=== PATIENT | female | born 1960 | race Caucasian/White ===

== ENCOUNTER 2017-08-28 22:37 | Observation (INO) | payer MEDICAID, OTHER ==
[2017-08-28] MEDS ORDERED: NS 0.9% 1000 ML* 1,000 ML IV ONE (22:51)
[2017-08-28] MEDS ORDERED: Midazolam* 1 MG/ML 5 ML VIAL (5 MG) SLOW PUSH ONE (22:51)
[2017-08-28] MEDS ORDERED: fentaNYL* 50 MCG/ML 2 ML VIAL (100 MCG VIAL) IV SLOW PU ONE (22:51)
[2017-08-29 01:11] LABS: ABS Basophils 0 10^3/ul (0-0.2); ABS Eosinophils 0 10^3/ul (0-0.6); ABS Lymphocytes 0.8 10^3/ul (1.0-4.8); ABS Monocytes 0.5 10^3/ul (0-0.8); ABS Neutrophils 11.2 10^3/ul (1.5-7.7); ABS Nucleated RBC 0 10^3/ul; Eosinophil % 0.1 % (0-6); Hematocrit 37 % (35-47); Hemoglobin 12.7 g/dl (12.0-16.0); Lymphocyte % 6.6 % (25-47); Mean Corpuscular HGB Conc 34 g/dl (31-36); Mean Corpuscular Hemoglobin 29 pg (27-31); Mean Corpuscular Volume 85 fL (80-97); Mean Platelet Volume 7.6 um3 (7.4-10.4); Nucleated Red Blood Cells % 0; Platelet Count 212 10^3/ul (150-450); Red Blood Count 4.37 10^6/ul (4.00-5.40); Red Cell Distribution Width 13 % (10.5-15); White Blood Count 12.5 10^3/ul (3.5-10.8)
[2017-08-29 01:19] LABS: INR 0.95 (0.77-1.02)
[2017-08-29 01:27] LABS: EGFR Non-African American 105.1 (>60)
[2017-08-29] MEDS ORDERED: Iohexol 350* (CONTRAST) 500 ML MDV IV ONE (01:57)
[2017-08-29] MEDS ORDERED: Potassium Chlor TAB* 20 MEQ TAB.ER PO ONE (02:30)
--- NOTE | 2017-08-29 02:50 | ED ---
Jorje Mcdowell Elizabeth, scribed for Edwin Kraft MD on 08/28/17 at 2250 . Lower Extremity - HPI Summary HPI Summary: This patient is a 56 year old F BIBA to [facility] with a chief complaint of left knee pain since earlier today. The patient reports that she tripped over an object and fell on her knee. The patient was transferred from [facility] and received a CT scan that revealed her left knee to be dislocated. Symptoms aggravated by movement, ambulation, and weight bearing. Symptoms alleviated by nothing. - History of Current Complaint Stated Complaint: LEFT KNEE INJURY Hx Obtained From: Patient Mechanism Of Injury: Fall From A Standing Position Onset of Pain: Immediate Onset/Duration: Hours Severity Initially: Moderate Severity Currently: Moderate Timing: Constant Location: Is Discrete @ - left knee Associated Signs And Symptoms: Positive: Swelling, Knee Pain - left knee Aggravating Factor(s): Standing, Ambulation, Movement Alleviating Factor(s): Nothing Able to Bear Weight: No - Allergies/Home Medications Allergies/Adverse Reactions: Allergies Allergy/AdvReac Type Severity Reaction Status Date / Time latex Allergy Unknown Verified 08/28/17 23:41 Reaction Details Home Medications: Home Medications Conjugated Estrogens TAB* [Premarin TAB*] 0.625 mg PO DAILY 08/28/17 [History Confirmed 08/28/17] Hydrochlorothiazide TAB* [Hydrodiuril TAB*] 25 mg PO DAILY 08/28/17 [History Confirmed 08/28/17] Levothyroxine TAB* [Synthroid TAB*] 125 mcg PO DAILY 08/28/17 [History Confirmed 08/28/17] PMH/Surg Hx/FS Hx/Imm Hx Endocrine/Hematology History: Denies: Hx Diabetes Respiratory History: Denies: Hx Chronic Obstructive Pulmonary Disease (COPD) Opthamlomology History: Denies: Hx Legally Blind EENT History: Denies: Hx Deafness - Surgical History Surgery Procedure, Year, and Place: - Family History Known Family History: Positive: None Review of Systems Negative: Fever Negative: Epistaxis Negative: Cough Positive: Arthralgia - left knee pain All Other Systems Reviewed And Are Negative: Yes Physical Exam - Summary Physical Exam Summary: VITAL SIGNS: Reviewed. GENERAL: Patient is a well-developed and nourished FEMALE who is lying comfortable in the stretcher. Patient is not in any acute respiratory distress. HEAD AND FACE: No signs of trauma. No ecchymosis, hematomas or skull depressions. No sinus tenderness. EYES: PERRLA, EOMI x 2, No injected conjunctiva, no nystagmus. EARS: Hearing grossly intact. Ear canals and tympanic membranes are within normal limits. MOUTH: Oropharynx within normal limits. NECK: Supple, trachea is midline, no adenopathy, no JVD, no carotid bruit, no c- spine tenderness, neck with full ROM. CHEST: Symmetric, no tenderness at palpation LUNGS: Clear to auscultation bilaterally. No wheezing or crackles. CVS: Regular rate and rhythm, S1 and S2 present, no murmurs or gallops appreciated. ABDOMEN: Soft, non-tender. No signs of distention. No rebound no guarding, and no masses palpated. Bowel sounds are normal. EXTREMITIES: no cyanosis or clubbing. Deformity of the left knee. She has a knee immobilizer on the left leg. Neurovascular exam intact distally NEURO: Alert and oriented x 3. No acute neurological deficits. Speech is normal and follows commands. SKIN: Dry and warm Triage Information Reviewed: Yes Vital Signs Reviewed: Yes Procedures - Procedure Summary Procedure Summary: Moderate sedation: Consent was obtained from the patient and she was given Fentanyl 100 and Versed 5 per moderate sedation protocol. The time for moderate sedation was 15 minutes. - Joint Reduction left knee Joint Reduction Site: knee (L) Conscious Sedation: Yes Reduction Attempts: 1 Pre-Procedure NV Exam: Yes Post Joint Reduction Film: no fracture seen Diagnostics - Laboratory Result Diagrams: 08/29/17 00:48 08/29/17 00:48 Lab Statement: Any lab studies that have been ordered have been reviewed, and results considered in the medical decision making process. - Radiology Left knee XR Xray Interpretation: No Acute Changes - Impression: good alignment of the left knee, no fracture. Radiology Interpretation Completed By: ED Physician - Dr. Kraft. Pending official report. - CT Left knee CTA CT Interpretation: No Acute Changes - Normal CT. Dr. Kraft has reviewed this report. CT Interpretation Completed By: Radiologist Lower Extremity Course/Dx - Course Course Of Treatment: This patient is a 56 year old F BIBA to [facility] with a left knee dislocation that occurred earlier today. The patient was transferred to [facility] from [facility]. Consent was obtained from the patient and she was given Fentanyl 100 and Versed 5 per moderate sedation protocol. Moderate sedation time was 15 minutes. Using traction and contraction reduction of the left knee dislocation was performed. Post-procedure XR revealed good alignment and no fracture. Neurovascular exam was intact prior to the procedure and post- procedure. CT of left leg reveals, per radiologist, no acute changes. ED physician has reviewed this radiology report. Test results with no significant abnormalities. In the ED course the patient was also given Potassium Chlor, Contrast, and IV fluids. We discussed patient care with Dr. Pleitez, orthopedist , and they recommended the patient be admitted. Patient will be admitted to [facility]. The patient is agreeable with this plan. - Diagnoses Provider Diagnoses: Left knee dislocation - Physician Notifications Discussed Care Of Patient With: Neal Pleitez Time Discussed With Above Provider: 02:35 Instructed by Provider To: Admit As Inpatient Discharge - Sign-Out/Discharge Documenting (check all that apply): Discharge/Admit/Transfer - Discharge Plan Condition: Stable Disposition: ADMITTED TO [facility] Discharge Disposition Comment: admit to [facility] The documentation as recorded by the Jorje guajardo Elizabeth accurately reflects the service I personally performed and the decisions made by me, Edwin Kraft MD.
[2017-08-29] MEDS: Ibuprofen TAB* 600 MG PO PRN ×2 (03:56→09:07)
[2017-08-29] MEDS ORDERED: Levothyroxine TAB* 125 MCG TAB PO SCH (06:00)
--- NOTE | 2017-08-29 06:58 | RAD ---
INDICATION: Left knee dislocation status post reduction. COMPARISON: Comparison is made with a prior outside study from August 28, 2017. TECHNIQUE: 2 views of the left knee were obtained. FINDINGS: The patient is status post reduction. The bones are in normal alignment. No joint effusion or fracture is seen. IMPRESSION: THE BONES ARE IN NORMAL ALIGNMENT, NO EVIDENCE FOR FRACTURE. RECOMMEND AN MRI STUDY OF THE LEFT KNEE TO EVALUATE FOR LIGAMENT INJURY.
--- NOTE | 2017-08-29 07:23 | RAD ---
INDICATION: Left knee dislocation status post reduction. COMPARISON: Comparison is made with a prior x-ray study of the left knee from August 28, 2017. TECHNIQUE: Contiguous axial sections were obtained of the left knee. Images were reconstructed in the sagittal and coronal planes. The exam was performed following intravenous injection of 125 mL of Omnipaque 350 nonionic contrast. FINDINGS: There is suboptimal timing of the contrast. The popliteal artery is normal in caliber without evidence for aneurysm or pseudoaneurysm. There is no evidence for dissection or stenosis. There is mild soft tissue swelling around the knee. No joint effusion or fracture is seen.. IMPRESSION: 1. SLIGHTLY LIMITED STUDY, NO EVIDENCE FOR POPLITEAL ARTERY PSEUDOANEURYSM OR DISSECTION. 2. SOFT TISSUE SWELLING, NO FRACTURE IS SEEN. RECOMMEND A FOLLOW-UP MRI OF THE LEFT KNEE TO EVALUATE FOR LIGAMENT INJURY.
[2017-08-29] MEDS ORDERED: Conjugated Estrogens TAB* 0.625 MG TAB PO SCH (09:00)
[2017-08-29] MEDS ORDERED: Hydrochlorothiazide TAB* 25 MG PO SCH (09:00)
[2017-08-29] MEDS ORDERED: HYDROcodone/ACETAMIN 5-325 MG* 1 TAB PO ONE (10:19)
[2017-08-29] MEDS ORDERED: HYDROcodone/ACETAMIN 5-325 MG* 1 TAB ONE (10:34)
--- NOTE | 2017-08-29 12:29 | RAD ---
INDICATION: Left hip injury. COMPARISON: There are no prior studies available for comparison. TECHNIQUE: An AP view of the pelvis and frontal and lateral views of the left hip were obtained. FINDINGS: The bones are in normal alignment. No fracture is seen. Joint spaces appear maintained. There is contrast within the urinary bladder from a prior CT angiograms study obtained earlier today. IMPRESSION: NO EVIDENCE FOR FRACTURE, IF THE PATIENT'S SYMPTOMS PERSIST RECOMMEND FOLLOW-UP IMAGING.
--- NOTE | 2017-08-29 13:28 | CONS ---
CONSULTATION REPORT: DATE OF CONSULT: 08/29/17 BRIEF CLINICAL NOTE: Ms. Lance is a 56-year-old female, who was admitted initially to [facility] after sustaining a fall at home and sustained an injury to her left lower extremity, speci fically her left knee. She states that she tried to step over an object, her foot was pinned and she fell and she felt her knee "come out of place." She states that her neighbors noticed her on the gr ound and she was transported to [facility] where she was evaluated. According to the records, she presented to [facility] on 08/28/17 at 1951 and the patien t had x-ray performed at 2051. Diagnosis of a left anterolateral knee dislocation was made and there is no mention of an attempted reduction at that time and the patient states she does not recall an a ttempted closed reduction. Calls made to transfer the patient to [facility] and she under went a closed reduction of her left anterolateral knee dislocation, which was confirmed at 2340. The reduction performed revealed a concentric reduction with no associated fracture. The patient also u nderwent a CT of her left knee on 08/29/17 at 0154, which again revealed concentric reduction of her left knee and no evidence of acute fracture and additionally there was no evidence of popliteal aneur ysm or pseudoaneurysm. PAST MEDICAL HISTORY: Includes hypothyroid disease. MEDICATIONS: 1. She is on levothyroxine 125 mcg daily. 2. She is on estrogen, Premarin that is, 0.625 mg daily. 3. She is on hydrochlorothiazide 25 mg daily. 4. She also states that she is on Justin 10/325 mg 1 p.o. b.i.d. She states that she frequently cuts the Justin pill in half. The patient states she has been on the Justin for approximately 2 years. PHYSICAL EXAM: Today, this is a patient who is alert and oriented who states that she was in severe pain. The patient's HEENT is entirely within normal limits. Chest is clear to auscultation. Cardiac : S1, S2. No murmurs, gallops, or rubs noted. Abdomen is soft and nontender to palpation. She is overweight. Extremity Exam: The knee immobilizer was loosened and the patient's skin is intact. Per ipheral pulses are intact. She does have mild swelling of her left knee, but understandable due to t he trauma to the left knee, and in comparison to her right uninjured knee, there is minimal effusion noted. The patient is able to ann her left foot against my resistance and she has sensation intact to the entire dorsum of her left foot and she has full ankle dorsiflexion, plantar flexion, and inve rsion. IMPRESSION AND PLAN: Medical consult was ordered and Dr. Manrique evaluated the patient for me and the patient was given additional pain medication at this time. The PT and OT consults were ordered and th e patient will be seen by Physical Therapy and we will attempt to mobilize her with toe touch only wi th either walker or crutches, whichever she can manage best, and the plan is that she will be seen at [facility] for further outpatient diagnostic studies regarding her left knee, as I believe th e patient most assuredly has ligamentous injury that may need to be addressed at a later date. I wou ld like to also obtain a plain film of her left hip as the patient states that she has multiple joint arthritis; however, there are minimal degenerative changes involving her left knee. However, with h er complaint, I would like to obtain a portable film of her left hip prior to her being discharged. All of the patient's questions were answered to her full satisfaction. [id number]/[facility] #: [id number]
[2017-08-29 13:44] VITALS: BP 108/55
--- NOTE | 2017-08-29 18:06 | CONS ---
CC: Dr. Kaamljit Nair; Dr. Pleitez * CONSULTATION REPORT: DATE OF CONSULT: 08/29/17 PRIMARY CARE PHYSICIAN: Dr. Kamaljit Nair. ORTHOPEDIST: Neal Pleitez MD REQUESTING PHYSICIAN FOR CONSULT: Neal Pleitez MD REASON FOR CONSULT: Evaluation for intractable pain. HISTORY OF PRESENT ILLNESS: This is a 56-year-old female with a past medical history of arthritis, on narcotics, who presented to the emergency room from [facility] emergency room for a dislocated left knee. The patient arrived to [facility]'s emergency room. She had her left knee reduced under conscious sedation by Dr. Kraft. Followup imaging showed good alignment in the fracture. She was admitted by Dr. Pleitez, orthopedist. This morning, when Dr. Pleitez evaluated her, she had a significant amount of left leg pain down from her hip to her ankle. He was concerned that her pain was out of proportion to her presentation for a left knee dislocation that has since been reduced. On my encounter, the patient is very tearful. 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 She is concerned that she cannot pay her bills. She was out doing a yard sale to try and earn more money when she fell and dislocated her knee. She states that when the knee was reduced, the pain did improve, but she still is having a significant amount of pain. She has pain in her left buttocks and down to her leg. She is worried about how she is going to manage at home and she states she normally takes Holton 10 mg/325, splits it and takes it twice a day. When discussing alternative pain medication, in addition to muscle relaxer, she states she is worried that it will make her fall her asleep and she wants to be able to go home and drive home. The patient denies any chest pain or shortness of breath; otherwise, review of systems is negative. PAST MEDICAL HISTORY: 1. Arthritis. 2. Chronic pain. 3. Hypertension. 4. Hypothyroidism. 5. Morbid obesity. MEDICATIONS: 1. Hydrochlorothiazide 25 mg p.o. daily. 2. Premarin 0.625 mg p.o. daily. 3. Synthroid 125 mcg daily. 4. Holton 10/325 half a tab p.o. b.i.d. ALLERGIES: LATEX. FAMILY HISTORY: Reviewed and noncontributory. SOCIAL HISTORY: As mentioned, the patient works as a counter supervisor at [employer]. She lives alone. No smoking, alcohol, or illicit drug use. Her healthcare proxy is her mother and son. CODE STATUS: Full code. REVIEW OF SYSTEMS: A 14-point review of systems as mentioned in the HPI, otherwise negative. PHYSICAL EXAM: Vitals: Temp 97.7, pulse rate 62, respiratory rate 14, oxygen saturation 98% on room air, blood pressure 102/53. General: The patient is very tearful, in no acute distress. HEENT: Head is normocephalic. Pupils are equal and reactive, icteric. Oropharynx: Mucous membranes are moist. Neck: Supple. No lymphadenopathy. Cardiac: Regular rate and rhythm. No murmurs, rubs, or gallops. Respiratory: Clear to auscultation. No wheezing, rhonchi, or rales. Abdomen: Morbidly obese, soft, nontender. Extremities: The patient with a left knee immobilizer and an ice pack in place. When palpating hip, no pain with hip palpation. Lower extremity strength is equal and symmetric. She has good cap refill. Sensation intact. Pain diffusely nonfocal over left lower extremity. +2 DPs. Neurologic: Alert and oriented x3. No gross focal neurologic deficits. DIAGNOSTIC STUDIES/LAB DATA: White count 12.5, hemoglobin 12.7, hematocrit 37, platelets 212. INR 0.95. Sodium , potassium 2.9, chloride 105, bicarb 26 , BUN 13, creatinine 0.59, glucose 112. Radiographic imaging: The patient's lower extremity CT showed slightly limited study. No evidence for popliteal artery pseudoaneurysm or dissection, soft tissue swelling, no fracture is seen. ASSESSMENT AND PLAN: This is a 56-year-old female with a past medical history of arthritis, on narcotics, who presented to the emergency room from [facility] with the dislocated left knee that was reduced in the [facility] ER under conscious sedation, now complaining of intractable left lower leg pain. After further discussion, there is a lot of psychosocial dynamic here with concern for her job and finances and she has also has not been taking her regularly prescribed medication of Holton. We discussed holding off on a muscle relaxer and giving her a full 10 mg/325 of Holton and having Physical Therapy evaluate her. We can always increase the Holton as needed for now, but the goal is to have the pain be tolerable enough for her to be able to go home. Dr. Pleitez has ordered Physical Therapy evaluation for home safety evaluation and to follow up with him concerning any further knee pathology including an anterior cruciate ligament tear. The patient is agreeable to this plan. We will follow up if necessary; otherwise, we will sign off. Thank you for this consultation. PATIENT TIME: Greater than 30 minutes was spent doing the consultation, more than half the time spent in direct patient contact. [id number]/[facility] #: [id number] OLIVIER
== END 2017-08-29 14:45 | disposition home or self-care (01) ==
LOC: ED 22:37 → INTOOBSV 08-29 02:46 → SSU 08-29 02:46
PROVIDERS: ADMIT Orthopaedic Surgery; ATTEND Orthopaedic Surgery
DX: S83.105A Unspecified dislocation of left knee, initial encounter (principal); W01.0XXA Fall on same level from slipping, tripping and stumbling without subsequent striking against object, initial encounter; Y92.9 Unspecified place or not applicable; E03.9 Hypothyroidism, unspecified; M79.605 Pain in left leg; E66.01 Morbid (severe) obesity due to excess calories; G89.29 Other chronic pain; Z79.899 Other long term (current) drug therapy
CPT/HCPCS: 27550; 36415; 80053; 85025; 85610; 85730; 96374; 99156; 99285; A9270-GY; G0378; J2250; J3010; Q9967